=== PATIENT | female | born 1990 | race Caucasian/White ===

== ENCOUNTER 2021-05-31 06:27 | Inpatient (IN) ==
[2021-05-31] MEDS ORDERED: D5 1/2 NS 1,000 ML 1,000 ML IV SCH (06:49)
[2021-05-31] MEDS ORDERED: ANCEF VIAL 1 GRAM IVP ONE (06:49)
[2021-05-31] MEDS: LR 1,000 ML IV 1,000 ML IV ONE (06:51)
[2021-05-31] MEDS ORDERED: PITOCIN ONE (06:52)
[2021-05-31] MEDS ORDERED: DILAUDID INJ ONE (06:52)
[2021-05-31] MEDS ORDERED: MARCAINE SPINAL ONE (06:52)
[2021-05-31] MEDS ORDERED: XYLOCAINE 2 % (PLAIN) ONE (06:53)
[2021-05-31] MEDS ORDERED: DIPRIVAN VIAL 20 ML ONE (06:53)
[2021-05-31] MEDS ORDERED: ZOFRAN INJ 4 MG VIAL ONE (06:53)
[2021-05-31] MEDS ORDERED: REGLAN INJ 10 MG VIAL ONE (06:53)
[2021-05-31] MEDS ORDERED: PEPCID 20 MG VIAL ONE (06:53)
[2021-05-31] MEDS ORDERED: NS 100 ML IV 100 ML ONE (06:55)
[2021-05-31] MEDS ORDERED: LR 1,000 ML IV 1,000 ML IV ONE ×2 (06:58→07:49)
[2021-05-31] MEDS ORDERED: D5 1/2 NS 1,000 mL + PITOCIN 20 UNITS/L IV 20 UNITS/1,000 ML BAG IV ONE (06:59)
[2021-05-31 07:17] LABS: BASOPHILS % (AUTO) 0.6 % (0.2-1.0); EOSINOPHILS # (AUTO) 0.1 x10^3/uL (0.0-0.2); EOSINOPHILS % (AUTO) 0.8 % (0.9-2.9); HEMATOCRIT 33.3 % (36.0-47.0); HEMOGLOBIN 11.5 g/dL (12.0-16.0); LYMPHOCYTES % (AUTO) 29.4 % (21.0-51.0); MEAN CORPUSCULAR HEMOGLOBIN 27.6 pg (27.0-34.0); MEAN CORPUSCULAR HGB CONC 34.5 g/dL (33.0-35.0); MEAN PLATELET VOLUME 8.8 fL (7.4-11.0); MONOCYTES # (AUTO) 0.5 x10^3/uL (0.3-0.8); MONOCYTES % (AUTO) 7.1 % (0.0-13.0); NEUTROPHILS # (AUTO) 4.3 x10^3/uL (2.2-4.8); NEUTROPHILS % (AUTO) 62.1 % (42.0-75.0); RED BLOOD COUNT 4.16 X10^6/uL (3.5-5.4); WHITE BLOOD COUNT 6.9 X10^3/uL (3.6-10.0)
[2021-05-31 07:20] LABS: BILIRUBIN,URINE NEGATIVE (NEGATIVE); BLOOD/HEMOGLOBIN,URINE NEGATIVE (NEGATIVE); GLUCOSE, URINE NEGATIVE (NEGATIVE); KETONES,URINE NEGATIVE (NEGATIVE); LEUKOCYTE ESTERASE ,URINE 1+ (NEGATIVE); NITRITES,URINE NEGATIVE (NEGATIVE); PROTEIN,URINE 1+ (NEGATIVE); UROBILINOGEN,URINE NORMAL (NORMAL)
[2021-05-31 07:28] LABS: BLOOD UREA NITROGEN 10 mg/dL (7-18); CARBON DIOXIDE 25.1 mmol/L (21-32); CHLORIDE 101 mmol/L (98-107); SODIUM 134 mmol/L (136-145); eGFR NON BLACK RACES > 60 (>60)
[2021-05-31 07:47] LABS: APPEARANCE,URINE CLOUDY (CLEAR); COLOR,URINE YELLOW (YELLOW)
[2021-05-31 07:48] LABS: BACTERIA,URINE 1+ /HPF (NEGATIVE); CALCIUM OXALATE CRYSTALS,UR FEW /HPF (NEGATIVE); RBC,URINE 0-2 /HPF (0-3); SQUAMOUS EPITHELIAL CELL,UR MANY /HPF (NEGATIVE)
[2021-05-31] MEDS ORDERED: EPHEDRINE SULFATE INJ ONE (08:08)
[2021-05-31] MEDS ORDERED: REGLAN INJ 10 MG VIAL IVP PRN ×2 (09:09→09:49)
[2021-05-31] MEDS ORDERED: BARHEMSYS INJ IVP PRN (09:09)
[2021-05-31] MEDS ORDERED: PHENERGAN INJ 25 MG IM PRN (09:09)
[2021-05-31] MEDS ORDERED: ZOFRAN INJ 4 MG VIAL IVP PRN ×2 (09:09→09:49)
[2021-05-31] MEDS ORDERED: BENADRYL INJ 50 MG VIAL IVP PRN ×2 (09:09→09:49)
[2021-05-31] MEDS ORDERED: BENADRYL INJ 50 MG VIAL ONE (09:21)
[2021-05-31] MEDS ORDERED: TORADOL 30 MG VIAL IVP PRN (09:49)
[2021-05-31] MEDS ORDERED: ADACEL or BOOSTRIX TDaP VACCINE IM ONE (09:49)
[2021-05-31] MEDS ORDERED: NARCAN INJ IVP PRN (09:49)
[2021-05-31] MEDS ORDERED: MYLICON TAB 80 MG CHEW PO PRN (09:49)
[2021-05-31] MEDS ORDERED: PERCOCET TAB 5/325 MG PO PRN (09:49)
[2021-05-31] MEDS ORDERED: D5 1/2 NS 1,000 ML 1,000 ML with PITOCIN 20 UNITS IV SCH ×2 (10:00)
[2021-06-01 04:54] LABS: HEMATOCRIT 32.6 % (36.0-47.0)
[2021-06-01] MEDS ORDERED: PERCOCET TAB 5/325 MG PO PRN (07:32)
[2021-06-01] MEDS ORDERED: COLACE CAP 100 MG PO ONE (07:59)
[2021-06-01] MEDS ORDERED: BACTROBAN TOPICAL OINT ONE (08:00)
[2021-06-01] MEDS ORDERED: PRENATAL PLUS PO ONE (08:00)
[2021-06-01] MEDS ORDERED: PROTONIX TAB 40 MG PO ONE (08:00)
[2021-06-01] MEDS ORDERED: MOTRIN TAB 800 MG PO ONE (08:13)
[2021-06-01] MEDS: PRENATAL PLUS PO SCH (08:15)
[2021-06-01] MEDS: PROTONIX TAB 40 MG PO SCH (08:15)
[2021-06-01] MEDS: MOTRIN TAB 800 MG PO PRN ×2 (08:15→18:52)
[2021-06-01] MEDS: COLACE CAP 100 MG PO SCH ×2 (08:15→20:42)
[2021-06-01] MEDS: BACTROBAN TOPICAL OINT TOP SCH ×2 (13:42→21:56)
[2021-06-02] MEDS: BACTROBAN TOPICAL OINT TOP SCH (05:20)
[2021-06-02] MEDS: PRENATAL PLUS PO SCH (08:13)
[2021-06-02] MEDS: COLACE CAP 100 MG PO SCH (08:13)
[2021-06-02] MEDS: PROTONIX TAB 40 MG PO SCH (08:14)
[2021-06-02 08:22] VITALS: BP 129/75
== END 2021-06-02 11:20 | disposition home or self-care (01) | DRG 787 ==
LOC: SURG1 06:27 → LD 06:39 → EDSTATUS 07:30 → MED/SURG 09:28
PROVIDERS: ADMIT Specialist; ATTEND Specialist
DX: O34.211 Maternal care for low transverse scar from previous cesarean delivery; B95.1 Streptococcus, group B, as the cause of diseases classified elsewhere; N85.8 Other specified noninflammatory disorders of uterus; Z3A.39 39 weeks gestation of pregnancy; Z37.0 Single live birth; O32.1XX0 Maternal care for breech presentation, not applicable or unspecified; O98.82 Other maternal infectious and parasitic diseases complicating childbirth